=== PATIENT | female | born 1955 | race Asian ===

== ENCOUNTER 2021-11-21 10:03 | Outpatient (CLI) | payer BC, SELFPAY ==
--- NOTE | ~2021-11-21 | XR_ITS ---
EXAMINATION: XR hand RT min 3V DATE: 11/21/2021 10:27 INDICATION: Pain at the base of the right third and fourth digits extending into the hand. TECHNIQUE: Posteroanterior, oblique and lateral views of the right hand were obtained. COMPARISON: None. FINDINGS: 1-2 mm ulnar positive variance. Bone alignment is otherwise normal. No fracture. Mild polyarticular o steoarthritis at the distal radioulnar, wrist, first carpometacarpal and multiple interphalangeal antonio nts. No erosions to suggest inflammatory arthritis. Soft tissues are unremarkable. IMPRESSION: 1. 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 No acute osseous abnormalities. Reviewed, dictated and finalized at location A. IMPRESSION: 1. 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 No acute osse ous abnormalities.
[2021-11-21 19:00] LABS: Hematocrit 40.2 % (37.0-47.0); Hemoglobin 12.4 g/dL (12.0-15.0); Mean Corpuscular HGB Conc 30.8 g/dl (32-36); Mean Corpuscular Hemoglobin 32.6 pg (26-34); Mean Corpuscular Volume 105.8 fl (80-100); Mean Platelet Volume 10.3 fl (7.4-10.4); Platelet Count Result 185 k/mm3 (150-375); Red Cell Distribution Width 11.9 % (11.5-14.5); White Blood Count 5.1 K/mm3 (4.5-10.0)
[2021-11-21 20:25] LABS: Alanine Aminotransferase 19 U/L (6-35); Albumin Level 4.6 g/dL (3.5-5.1); Alkaline Phosphatase 123 U/L (38-126); Anion Gap 4 mmol/L (8-16); Aspartate Amino Transferase 30 U/L (14-36); Bilirubin,Total 0.5 mg/dL (0.2-1.3); Blood Urea Nitrogen 12 mg/dL (7-17); Calcium 9.3 mg/dL (8.4-10.2); Carbon Dioxide 27 mmol/L (22-30); Chloride 108 mmol/L (98-107); Cholesterol 194 mg/dL (0-200); Estimated Glomerular Filt Rate 56; Glucose 89 mg/dL (65-110); HDL Direct 108 mg/dL; Potassium 4.4 mmol/L (3.4-5.0); Sodium 139 mmol/L (137-145); Triglycerides 60 mg/dL (<150)
[2021-11-21 20:32] LABS: LDL Cholesterol Direct 58 mg/dL
== END 2021-11-21 10:04 | disposition home or self-care (01) ==
PROVIDERS: PCP Family Medicine; Visit Provider Family Medicine
DX: Z00.00 Encounter for general adult medical examination without abnormal findings (principal); D64.9 Anemia, unspecified; M81.0 Age-related osteoporosis without current pathological fracture; M19.041 Primary osteoarthritis, right hand
CPT/HCPCS: 36415; 73130; 80053; 80061; 85027

== ENCOUNTER 2021-12-11 14:44 | Outpatient (CLI) | payer BC, SELFPAY ==
--- NOTE | ~2021-12-11 | DEXA_ITS ---
Bone Density Report Name: SOPHIE SORTO Age: 66 Sex: Female Ethnicity: Date of : 1955 Indication: postmenopausal; screening for osteoporosis; height loss; Referring Provider: LISA GARCIA Study: Bone densitometry was performed. Exam Date: December 11, 2021 Accession number: [id number] Bone Density: Region BMD T-score Z-score Classification AP Spine(L1-L4) 0.644 -3.7 -1.9 Osteoporosis Femoral Neck (Left) 0.554 -2.7 -1.2 Osteoporosis Total Hip (Left) 0.660 -2.3 -1.1 Osteopenia Femoral Neck (Right) 0.556 -2.6 -1.1 Osteoporosis Total Hip (Right) 0.670 -2.2 -1.0 Osteopenia Total Hip Mean 0.665 -2.3 -1.1 Osteopenia World Health Organization criteria for BMD impression classify patients as: Normal (T-score at or above -1.0), Osteopenia (T-score between -1.0 and -2.5), or Osteoporosis (T-score at or below -2.5). 10-year Fracture Risk: FRAX not reported because: Some T-score for Spine Total or Hip Total or Femoral Neck at or below -2.5 Treated for osteoporosis Clinical Information Provided by Patient: Is being treated for osteoporosis Has used the following medications: Fosamax (i.e. alendronate), Vitamin D, Calcium Patient maximum height was 64 Menopause Age: 52 Drinks caffeinated beverages Onset of menses at age 52 Number of children 2 Impression: The patient has osteoporosis, based on the Total Spine T-score. Discussion: It is important to ask patients whether they are taking their medications and to encourage continued and appropriate compliance with their osteoporosis therapies to reduce fracture risk. It is also important to review their risk factors and encourage appropriate calcium and vitamin D intakes, exercise, fall prevention and other lifestyle measures. Follow-Up: Consider a repeat BMD and Vertebral Fracture Assessment (VFA) exam in 2 years or sooner if medically necessary, to reassess this patient's status. Reported by: ARLEN on 12/11/2021 3:00:00 PM. Reviewed, dictated and finalized at location AFiona GOODMAN
== END 2021-12-11 14:45 | disposition home or self-care (01) ==
LOC: ANHIMG 14:46
PROVIDERS: PCP Family Medicine; Visit Provider Family Medicine
DX: Z00.00 Encounter for general adult medical examination without abnormal findings (principal); D64.9 Anemia, unspecified; M81.0 Age-related osteoporosis without current pathological fracture; M85.852 Other specified disorders of bone density and structure, left thigh; M85.851 Other specified disorders of bone density and structure, right thigh
CPT/HCPCS: 77080